=== PATIENT | female | born 1970 | race Caucasian/White ===

== ENCOUNTER 2017-01-17 21:25 | Inpatient (IN) | payer MEDICAID ==
--- NOTE | ~2017-01-17 | HP ---
Unit #: [id number] #: [id number] Patient: MARIANA MARIANO [id number] [place] [address] [id number] MR#: [id number] NAME: MARIANA MARIANO. ROOM: P209 Age: 46 Sex: F Admission Date: 01/17/2017 : 1970 Attending Physician: Edi Johnson M.D. Admitting Physician: Edi Johnson M.D. Primary Care Physician: Dylan Lee M.D. HISTORY AND PHYSICAL HISTORY OF PRESENT ILLNESS Mariana is a 46 year old admitted to [address] [place] [address] because of her abuse of alcohol. PAST MEDICAL HISTORY 1. Long history of alcohol abuse. 2. Hypothyroidism. 3. History of migraine headaches. PAST SURGICAL HISTORY 1. Gastric bypass. 2. Hysterectomy. 3. Cholecystectomy. 4. Appendectomy. 5. Cervical fusion. ALLERGIES Penicillin (hives), codeine (hives). SOCIAL HISTORY She does not smoke. Drinks at least a pint of liquor on a daily basis and denies illicit drug use. FAMILY HISTORY Medically noncontributory. REVIEW OF SYSTEMS CONSTITUTIONAL: No fever or chills. HEENT: Denies any sore throat, ear pain or runny nose. CARDIOVASCULAR: Denies chest pain, irregular heart rhythm or palpitations. CHEST: Denies shortness of breath or cough. No hemoptysis. GASTROINTESTINAL: Denies nausea, vomiting, diarrhea or chronic constipation. ENDOCRINE: Denies history of increased thirst or urination. No recent significant weight loss or gain. GENITOURINARY: Denies dysuria, frequency, or hematuria. SKIN: Denies any rashes. HEMATOLOGIC: Denies history of increased bleeding or bruising. MUSCULOSKELETAL: Denies any hot, swollen joints. No generalized muscle pain. NEUROLOGIC: Denies problems with vision or speech. No frequent, severe headaches. No numbness, tingling or weakness in any extremities. Denies loss of bladder or bowel control. Unit #: [id number] #: [id number] Patient: MARIANA MARIANO CURRENT MEDICATIONS 1. Detox protocol 2. Effexor XR 75 mg b.i.d. 3. Synthroid 0.1 mg daily 4. Lamictal 100 mg daily PHYSICAL EXAMINATION GENERAL: Alert, well-nourished, in no apparent distress. VITAL SIGNS: Blood pressure 130/100, heart rate 80, respirations 16, temperature 98.6. WEIGHT: 159 pounds. HEIGHT: 5'6". SKIN: Warm and dry without rash or lesion. HEENT: Normocephalic. TMs not viewed. Oral and nasal passages clear. Conjunctivae clear. Pupils equal, round and reactive to light and accommodation. Extraocular movements intact. NECK: Supple without lymphadenopathy or thyromegaly. HEART: Regular rate and rhythm without murmur. LUNGS: Clear. ABDOMEN: Soft, nontender. : Not done. EXTREMITIES: No evidence of cyanosis, clubbing or edema. Moves all extremities without focal deficit. NEUROLOGICAL: Grossly within normal limits. Cranial Nerves: II: Visual maldonado are intact. III, IV AND : Extraocular movements are intact. Pupils are equal, round and reactive to light. V: Facial sensation is grossly normal. VII: Facial movements and expression are normal. VIII: Auditory acuity grossly intact. IX, X: Uvula is midline. Phonation is normal. XI: Patient shrugs shoulders and turns head normally. XII: Tongue protrudes in the midline. Sensory and Motor Function: Sensory and motor sensation is grossly normal. Motor: moves all extremities well. Coordination: Gait is normal. Deep Tendon Reflexes: Intact. IMPRESSION Psychiatric admission RECOMMENDATIONS PSYCHIATRIC: Per psychiatrist. MEDICAL: I see no contraindications to participating in facility's activities. MEDICAL PROGNOSIS Good. MEDICAL CONDITION Stable. Dictated by... Cristina Rajan P.A.-C. for Donna Barrientos M.D. Unit #: [id number] #: [id number] Patient: MARIANA MARIANO WINSTON/radha TD: 01/18/2017 19:51 JOB #: [id number] HISTORY AND PHYSICAL X Cristina Rajan HISTORY AND PHYSICAL
--- NOTE | ~2017-01-17 | PN ---
Unit #: [id number] #: [id number] Patient: TANO MARIANO [id number] [facility] [address] [place] [address] [id number] MR#: [id number] NAME: TANO MARIANO. ROOM: P209 Age: 46 Sex: F Admission Date: 01/17/2017 : 1970 Attending Physician: Edi Johnson M.D. Admitting Physician: Edi Johnson M.D. Primary Care Physician: Benjamin Perez PROGRESS NOTES DATE 01/21/2017 DISCUSSION Ms. Mariano is a 46-year-old white female who was seen today and chart was reviewed and case was discussed with the staff. She has been doing fairly well and appears to be coming out of the detox without any complications. She has been taking medications and tolerating them fairly well. MENTAL STATUS EXAMINATION Middle-aged white female who was casually dressed with fair personal hygiene, appears to be in no acute distress or discomfort. She was awake and alert on interaction with intact orientation. Her mood was anxious with congruent affect. She denies any suicidal or homicidal ideations. Her insight and judgement remains slightly impaired. TREATMENT PLAN We will continue her on her current medications and treatment protocol. We will monitor her response and make further adjustments as needed. Dictated by... Benjamin Blount/radha TD: 01/23/2017 21:11 JOB #: [id number] [facility] PROGRESS NOTES X Edi Johnson MD PROGRESS NOTE
--- NOTE | ~2017-01-17 | PN ---
Unit #: [id number] #: [id number] Patient: TANO MARIANO [id number] [facility] [address] [place] [address] [id number] I MR#: [id number] NAME: TANO MARIANO. ROOM: P209 Age: 46 Sex: F Admission Date: 01/17/2017 : 1970 Attending Physician: Edi Johnson M.D. Admitting Physician: Edi Johnson M.D. Primary Care Physician: Benjamin Perez PROGRESS NOTES DATE January 19, 2017 DISCUSSION Ms. Mariano is a 46-year-old white female, with alcohol dependence and mood disorder, who was seen today and chart was reviewed and the case was discussed with the staff. The patient has been anxious, withdrawn, and rather seclusive to herself. She does seem to be tremulous and shaky with slurred speech and unsteady gait, and appears to be going through some alcohol detox symptoms. Meanwhile, she has been taking her medications and tolerating them fairly well with no reported side effects. MENTAL STATUS EXAMINATION Middle-aged white female, who was casually dressed with fair personal hygiene and appears to be in no acute distress or discomfort. She was awake and alert with impaired attention and concentration. Her mood is anxious with a congruent affect. The patient denies any suicidal or homicidal ideations, and also denies any auditory or visual hallucinations. Her insight and judgment remain slightly impaired. TREATMENT PLAN 1. We will continue her on her current medications and treatment protocol, and will monitor her response to the medications, and make further adjustments as needed. 2. We will continue to followup. Dictated by... Benjamin Bluont/yeimy TD: 01/20/2017 10:09 JOB #: [id number] Unit #: [id number] #: [id number] Patient: TANO MARIANOISACC PROGRESS NOTES X Edi Johnson MD PROGRESS NOTE
--- NOTE | ~2017-01-17 | PN ---
Unit #: [id number] #: [id number] Patient: TANO MARIANO [id number] [facility] [address] [place] [address] [id number] I MR#: [id number] NAME: TANO MARIANO. ROOM: P209 Age: 46 Sex: F Admission Date: 01/17/2017 : 1970 Attending Physician: Edi Johnson M.D. Admitting Physician: Edi Johnson M.D. Primary Care Physician: Benjamin Perez PROGRESS NOTES DATE OF SERVICE 01/20/2017 DISCUSSION Ms. Mariano is a 46-year-old white female who was seen today. Chart was reviewed and case was discussed with the staff. She has been anxious, withdrawn, shaky, and tremulous. Meanwhile, she has been cooperative with the treatment recommendations and has been taking the medications and tolerating them fairly well. MENTAL STATUS EXAMINATION Middle-aged white female who is casually dressed with fair personal hygiene, appears to be in no acute distress or discomfort. She was awake and alert on interaction with intact orientation. Her mood is anxious with a congruent affect. She denies any suicidal or homicidal ideations. Her insight and judgment remain slightly impaired. TREATMENT PLAN 1. We will continue her on her current treatment protocol. We will monitor her response to the medications and make further adjustments as needed. 2. We will continue to follow up. Dictated by... Benjamin Blount/clydeg TD: 01/21/2017 08:37 JOB #: [id number] [facility] PROGRESS NOTES X Edi Johnson MD PROGRESS NOTE
--- NOTE | ~2017-01-17 | DS ---
Unit #: [id number] #: [id number] [facility]: [facility] [id number] [facility] [place] [address] [id number] MR#: [id number] NAME: TANO MARIANO. ROOM: P209 Age: 46 Sex: F Admission Date: 01/17/2017 : 1970 Discharge Date: 01/23/2017 Attending Physician: Edi Johnson M.D. Primary Care Physician: Dylan Lee M.D. DISCHARGE SUMMARY IDENTIFYING DATA Ms. Nuñez is a 46-year-old white female who is known to us from previous encounter and was brought to the hospital accompanied by her . DISCHARGE DIAGNOSES Psychiatric: Major depressive disorder, recurrent, moderate, without psychotic features; alcohol dependence, moderate and acute withdrawals. Medical: Hypothyroidism. Stressors: Moderate psychosocial stressors. HISTORY OF PRESENT ILLNESS Please see initial psychiatric evaluation for details. PAST PSYCHIATRIC HISTORY Please see initial psychiatric evaluation for details. PAST MEDICAL HISTORY Please see initial psychiatric evaluation for details. HOSPITAL COURSE The patient was admitted to the adult psychiatric unit at [facility]te and was oriented to the hospital environment. Routine p.r.n. medications were initiated, and she was started back on her home medications and alcohol detox protocol was initiated as well. She was taking the medications regularly and was tolerating them fairly well, however, was complaining of persistent depressive symptoms and Effexor XR was increased to 75 mg b.i.d. with good tolerability and therapeutic response and complete resolution of her detox symptoms followed by which, she was willing to step down to the intensive outpatient treatment program at [facility] and was decided that she will be discharged home and will continue further ongoing outpatient treatment. DISCHARGE MEDICATIONS Effexor XR 75 mg b.i.d. for depression. DISCHARGE CONDITION Stable. PROGNOSIS Fair. Dictated by... Unit #: [id number] #: [id number] Patient: TANO MARIANO Edi Johnson M.D. IAA/modl TD: 01/23/2017 07:01 JOB #: [id number] DISCHARGE SUMMARY X Edi Johnson MD DISCHARGE SUMMARY
--- NOTE | ~2017-01-17 | PA ---
Unit #: [id number] #: [id number] Patient: TANO MARIANO [id number] [facility] [address] [place] [address] [id number] I MR#: [id number] NAME: TANO MARIANO. ROOM: P209 Age: 46 Sex: F Admission Date: 01/17/2017 : 1970 Date of Assessment: Attending Physician: Edi Johnson M.D. Admitting Physician: Edi Johnson M.D. Primary Care Physician: Dylan Lee M.D. PSYCHIATRIC ASSESSMENT DATE OF SERVICE 11/17/2017. IDENTIFYING DATA Ms. Fitzgerald is a 46-year-old white female, who is a resident of [place], [place], who is known to us from previous encounter, who was brought to the hospital accompanied by her . CHIEF COMPLAINT "I relapsed on alcohol about 2 weeks ago." HISTORY OF PRESENT ILLNESS Ms. Fitzgerald is a 46-year-old white female with dual diagnosis of mood disorder and alcohol dependence, who is known to us from previous encounter, was brought back to the hospital, accompanied by her . Upon presentation, reports that she relapsed about 2 weeks ago on alcohol and since then, she has been consuming about 2 pints of bourbon a day with last consumption today and had a blood alcohol level of 284 upon presentation and reports increasing depression, anxiety, disturbed sleep, psychomotor retardation, feelings of hopelessness and helplessness, anhedonia, and suicidal ideation. She reports that she was holding a knife to herself today, was having thoughts to cut her wrist. 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 She also reports her mother has Alzheimer's and she is grieving the loss of her profession as she has no income and she has filed for bankruptcy and that she has been isolating herself, though she states that her is a positive support system along with her sister. She was seemed to be a significant danger to self and as such, recommendation for inpatient level of care was made and the patient was transferred to us. SUBSTANCE ABUSE HISTORY The patient reports drinking alcohol since she was 16 years old. Currently, she has been drinking 2 pints of bourbon a day and denies any other drug abuse. PAST PSYCHIATRIC HISTORY The patient has had [facility] and [facility], at [facility], and has been diagnosed and treated for mood disorder. Review of the medical records indicated that she is on a combination of Effexor, Wellbutrin, and Lamictal and has not Unit #: [id number] #: [id number] Patient: TANO MARIANO been able to find any benefit out of the medication due to mixing her medication with excessive amount of alcohol. PAST MEDICAL HISTORY Hypothyroidism. ALLERGIES Codeine and penicillin. PERSONAL AND SOCIAL HISTORY A 46-year-old white female, who reports that she is and unemployed and lives at home with her and has fairly decent social support system. MENTAL STATUS EXAMINATION Middle-aged white female, who was casually dressed with fair personal hygiene, appears to be in no acute distress or discomfort. She was awake and alert on interaction with intact orientation to time, place, and person. Her mood was anxious and depressed with a congruent affect. Her speech was slow and restricted in content. Her thought processes were disorganized with some looseness of associations and flight of ideas and suicidal ideations. Her insight and judgment remain significantly impaired. DIAGNOSTIC IMPRESSION Psychiatric: Major depressive disorder, recurrent, moderate, without psychotic features; alcohol dependence, moderate and acute withdrawals. Medical: Hypothyroidism. Stressors: Moderate psychosocial stressors. TREATMENT PLAN 1. The patient has presented with a history of mood disorder and substance abuse and has been decompensating and will need inpatient hospitalization for safety and stabilization and detoxification. We will start her on detox protocol. We will monitor her response and make further adjustments as needed. 2. Supportive therapy was provided to the patient. ESTIMATED LENGTH OF STAY 5 to 7 days. ABILITY TO HELP SELF Limited. WILLINGNESS TO HELP SELF The patient appears to be willing to help self. STRENGTHS 1. Communicative. 2. Cooperative. PROBLEMS 1. Chronic dysphoric symptoms. 2. Chronic chemical dependency. 3. Poor social support system. DISCHARGE CRITERIA This will be contingent upon the patient's ability to show resolution of Unit #: [id number] #: [id number] Patient: TANO MARIANO her depression and anxiety and her ability to stay safe to herself, particularly after discharge from the hospital. Dictated by... Benjamin Blount/johnson TD: 01/18/2017 07:12 JOB #: [id number] PSYCHIATRIC ASSESSMENT X Edi Johnson MD X PSYCHIATRIC ASSESSMENT
[2017-01-18 09:23] LABS: BASOPHIL# 0.1 X10e3 (0-0.3); BASOPHIL% 1.2 % (0-2.5); EOSINOPHIL# 0.2 X10e3 (0-0.7); EOSINOPHIL% 1.8 % (0.0-7.0); HEMATOCRIT 40.9 % (35.0-45.0); HEMOGLOBIN 13.5 gm/dL (12.0-16.0); LYMPHOCYTE% 20.3 % (17.0-45.0); MEAN CELL VOLUME 96.6 FL (83-96); MEAN CORPUSCULAR HGB CONC 33.1 g/dL (30-36); MEAN PLATELET VOLUME 8.4 FL (6.5-11.5); MONOCYTE# 0.7 X10e3 (0-1.0); MONOCYTE% 7.4 % (3.0-12.0); NEUTROPHIL% 69.3 % (40-75); PLATELET COUNT 333 X10e3 (140-420); RED BLOOD COUNT 4.23 X10e (3.90-5.30); RED CELL DISTRIBUTION WIDTH 13.5 % (11.0-15.5); WHITE BLOOD COUNT 10.1 X10e3 (4.0-10.5)
[2017-01-18 09:28] LABS: DIFF IND NO
[2017-01-18 09:45] LABS: THYROID STIMULATING HORMONE 7.16 uIU/ml (0.34-5.60)
[2017-01-18 09:49] LABS: ALBUMIN SERUM 4.4 g/dL (3.5-5.0); ALKALINE PHOSPHATASE 82 U/L (32-92); ALT (SGPT) 18 U/L (10-40); AST (SGOT) 32 U/L (10-42); BILIRUBIN,TOTAL 1.6 mg/dL (0.2-2.0); BLOOD UREA NITROGEN 8 mg/dL (9-23); CALCIUM SERUM 9.6 mg/dL (8.4-10.2); CARBON DIOXIDE 26 mmol/L (22-31); CHLORIDE 97 mmol/L (100-111); GLOM FILT RATE Estimated ABOVE60 mL/min (>60); GLUCOSE FASTING 198 mg/dL (70-110); POTASSIUM 4.4 mmol/L (3.5-5.1); SODIUM 137 mmol/L (135-145)
[2017-01-18 09:54] LABS: FREE THYROXIN (T4) 0.8 ng/dL (0.58-1.64)
[2017-01-21 12:15] LABS: URINE APPEARANCE CLEAR; URINE BILIRUBIN NEG (NEG); URINE BLOOD NEG (NEG); URINE COLOR YELLOW; URINE GLUCOSE NEG (NEG); URINE KETONE NEG (NEG); URINE LEUKOCYTE ESTERASE NEG (NEG); URINE NITRATE NEG (NEG); URINE PH 6.5 (5-8); URINE PROTEIN NEG (NEG); URINE SPECIFIC GRAVITY 1.017 (1.003-1.035); URINE UROBILINOGEN 0.2 MG/DL (NEG)
[2017-01-21 13:15] LABS: AMPHETAMINE NEG (NEG); BARBITURATES NEG (NEG); BENZODIAZEPINES POS (NEG); COCAINE NEG (NEG); MARIJUANA NEG (NEG); OPIATES NEG (NEG); TRICYCLIC ANTIDEPRESSANTS NEG (NEG); U METHADONE NEG (NEG)
== END 2017-01-23 11:51 | disposition hospice, home (50) | DRG 885 ==
LOC: P2S 21:25
PROVIDERS: Psychiatry & Neurology Psychiatry
PROC: HZ2ZZZZ Detoxification Services for Substance Abuse Treatment (ICD-10-PCS; principal; 2017-01-17)
DX: F33.1 Major depressive disorder, recurrent, moderate (principal); F10.239 Alcohol dependence with withdrawal, unspecified; E03.9 Hypothyroidism, unspecified; F41.9 Anxiety disorder, unspecified; Z88.5 Allergy status to narcotic agent; Z88.0 Allergy status to penicillin; Z56.0 Unemployment, unspecified; Z98.84 Bariatric surgery status
CPT/HCPCS: 80053; 80307; 81003; 84439; 84443; 85025; 86592

== ENCOUNTER 2017-03-17 05:50 | Inpatient (IN) | payer MEDICAID ==
--- NOTE | ~2017-03-17 | PN ---
Unit #: [id number] #: [id number] Patient: TANO MARIANO [id number] [facility] [address] [place] [address] [id number] MR#: [id number] NAME: TANO MARIANO. ROOM: P203 Age: 46 Sex: F Admission Date: 03/17/2017 : 1970 Attending Physician: Edi Johnson M.D. Admitting Physician: Edi Johnson M.D. Primary Care Physician: Benjamin Perez PROGRESS NOTES DATE OF SERVICE 03/22/2017 DISCUSSION Ms. Mariano is a 46-year-old white female who was seen today. Chart was reviewed and case was discussed with the staff. She has been anxious, withdrawn, and rather seclusive to himself and has been exhibiting some persistent anxiety and depressive symptom. Meanwhile, she has been taking the medications and tolerating them fairly well with no reported side effects. MENTAL STATUS EXAMINATION Middle-aged white female who is casually dressed with fair personal hygiene, appears to be in no acute distress or discomfort. She was awake and alert with impaired attention and concentration. Her mood is anxious with congruent affect. She denies any suicidal or homicidal ideations. Her insight and judgment remain slightly impaired. TREATMENT PLAN 1. We will continue her on her current medications and treatment protocol. We will monitor her response to the medications and make further adjustments as needed. 2. We will continue to follow up. Dictated by... Benjamin Blount/fran TD: 03/22/2017 11:20 JOB #: [id number] Unit #: [id number] #: [id number] Patient: TANO MARIANO PEAISACC PROGRESS NOTES Page 1 of 1 X Edi Johnson MD PROGRESS NOTE
--- NOTE | ~2017-03-17 | PN ---
Unit #: [id number] #: [id number] Patient: TANO MARIANO [id number] [facility] [address] [place] [address] [id number] I MR#: [id number] NAME: TANO MARIANO. ROOM: P203 Age: 46 Sex: F Admission Date: 03/17/2017 : 1970 Attending Physician: Edi Johnson M.D. Admitting Physician: Edi Johnson M.D. Primary Care Physician: Benjamin Perez NOTES DATE OF SERVICE: 03/20/2017 SUBJECTIVE Ms. Mariano is a 46-year-old white female who was seen today and chart was reviewed, and case was discussed with the staff, who reports the patient has been decompensating as she is in the midst of her acute delirium tremens and has been and has been transferred to different room, and has been kept into the locked camera room. Meanwhile, she has not been able to carry on any meaningful conversation medicated to keep her safe and acute psychosis and paranoia under control and as such, we will continue to monitor her response to treatment interventions and make further adjustments in treatment plan as needed. Dictated by... Benjamin Blount/sandrol TD: 03/20/2017 21:12 JOB #: [id number] [facility] ROONEY NOTES Page 1 of 1 X Edi Johnson MD X PROGRESS NOTE
--- NOTE | ~2017-03-17 | PA ---
Unit #: [id number] #: [id number] Patient: TANO MARIANO [id number] [facility] [address] [place] [address] [id number] I MR#: [id number] NAME: TANO MARIANO. ROOM: P180 Age: 46 Sex: F Admission Date: 03/17/2017 : 1970 Date of Assessment: 03/17/2017 Attending Physician: Edi Johnson M.D. Admitting Physician: Edi Johnson M.D. Primary Care Physician: Dylan Lee M.D. PSYCHIATRIC ASSESSMENT DATE OF SERVICE 03/17/2017. IDENTIFYING DATA Ms. Mariano is a 46-year-old white female, who is a resident of [place], [place], and is known to us from previous encounter, was transferred to us from the emergency room on a mental inquest warrant. CHIEF COMPLAINT "I've been drinking." HISTORY OF PRESENT ILLNESS A 46-year-old white female, who was brought to the hospital on a mental inquest warrant and taken out by her nephew which stated the patient has been diagnosed with bipolar disorder and has been having severe depression and has not been taking her medications prescribed for last week and has been abusing alcohol and has history of suicide attempt. The patient has stated that she wants to kill herself and was drinking and driving. MIW also stated that the patient has been verbally and physically threatening and petitioner concerned for safety of the patient and others. Upon presentation to the hospital, her blood alcohol level was 0.301 and she was kept in the waiting for 12 hours before assessment could be initiated and the patient was still seen to be shaking and she stated "I do this and I get nauseous." She was seen to be cooperative and was having some increasing anxiety and has history of alcohol dependence, has history of delirium tremens and she reports that she has been drinking close to 2 pints of bourbon a day and that she recently has been taking someone has medications at home that she used to take to reduce the risk of withdrawals and she endorses passive suicidal ideation stating "I don't actively want to do anything." She reports that they are family issues and her mother is terminally ill and father is not coping well with it and sister and the patient responsive of taking care of mother. The patient endorses stressors with not working and upcoming marriage as finance and health problems and does report increasing depression with feelings of hopelessness and helplessness, and as such, recommendation for inpatient level of care for safety and stabilization was made. The patient was medically cleared and then transferred to us. SUBSTANCE ABUSE HISTORY The patient reports a long history of alcohol dependence as she stated that she has been drinking since she was 16 years old and currently has been drinking 2 pints of bourbon a day and denies any other drug abuse. Unit #: [id number] #: [id number] Patient: TANO MARIANO PAST PSYCHIATRIC HISTORY The patient has had history of multiple inpatient psychiatric hospitalizations at [facility], at [facility] and other facilities and has been diagnosed and treated for bipolar disorder and has been noncompliant with medications including her Seroquel, Wellbutrin, and Lamictal and as such, has been decompensating. PAST MEDICAL HISTORY The patient's medical history is significant for migraine headaches, hypertension, history of retinal surgery. ALLERGIES Penicillin and codeine. PERSONAL AND SOCIAL HISTORY A 46-year-old white female, who reports that she is and and lives by herself, and is responsible for taking care of her parents. MENTAL STATUS EXAMINATION Middle-aged white female who was casually dressed with fair personal hygiene, appears to be in no acute distress or discomfort. She was awake and alert on interaction with intact orientation to time, place, and person. Her mood was anxious and depressed with a congruent affect. Her speech was slow and restricted in content. Her thought processes were disorganized with some looseness of associations and paranoid ideations. She also reports having suicidal ideations. Her insight and judgment remain significantly impaired. DIAGNOSTIC IMPRESSION Psychiatric: Bipolar disorder, most recent episode depressed, recurrent, moderate, without psychotic features; alcohol dependence, moderate and acute withdrawals. Medical: Hypertension, migraine headaches, history of retinal surgery. Stressors: Moderate psychosocial stressors. TREATMENT PLAN 1. The patient has presented with history of mood disorder and substance abuse and has been decompensating and will need inpatient hospitalization for safety and stabilization. We will start her back on her home medications. We will adjust the medications and monitor response. 2. Supportive therapy was provided to the patient. 3. Safe, structured, and nourishing environment will be provided. ESTIMATED LENGTH OF STAY 5 to 7 days. ABILITY TO HELP SELF Limited. WILLINGNESS TO HELP SELF The patient appears to be willing to help self. STRENGTHS 1. Communicative. 2. Cooperative. PROBLEMS 1. Chronic dysphoric symptoms. 2. Chronic chemical dependency. Unit #: [id number] #: [id number] Patient: TANO MARIANO 3. Poor social support system. DISCHARGE CRITERIA This will be continued the patient's ability to go through detox without having any significant withdrawal symptoms and her ability to stay safe to herself, particularly after discharge from the hospital. Dictated by... Edi Johnson M.D. CAROL/johnson TD: 03/18/2017 23:12 JOB #: [id number] PSYCHIATRIC ASSESSMENT Page 1 of 1 X Edi Johnson MD PSYCHIATRIC ASSESSMENT
--- NOTE | ~2017-03-17 | PN ---
Unit #: [id number] #: [id number] Patient: TANO MARIANO [id number] [facility] [address] [place] [address] [id number] MR#: [id number] NAME: TANO MARIANO. ROOM: P203 Age: 46 Sex: F Admission Date: 03/17/2017 : 1970 Attending Physician: Edi Johnson M.D. Admitting Physician: Edi Johnson M.D. Primary Care Physician: Benjamin Perez PROGRESS NOTES DATE 03/18/2017 DISCUSSION Ms. Mariano is a 46-year-old white female who was seen today and chart was reviewed and case was discussed with the staff. She has been anxious, withdrawn and rather seclusive to herself and has been in distress and discomfort as she is going through detox and staff put her on camera monitor in the room due to patient being unsteady on her feet and having the risk of fall. Meanwhile, she has been cooperative with treatment recommendations as she has been taking the medications and tolerating them fairly well. MENTAL STATUS EXAMINATION Middle-aged white female who was casually dressed with fair personal hygiene, appears to be in slight distress or discomfort. She was awake and alert with impaired attention and concentration. Her mood was anxious with congruent affect. Her speech was slow and restricted in content. Her thought processes were disorganized with some looseness of associations and flight of ideas. Her insight and judgement remains significantly impaired. TREATMENT PLAN 1. We will continue her on her current medications and treatment protocol. We will monitor her response to the medications and make further adjustments as needed. 2. We will continue to follow up. Dictated by... Benjamin Blount/radha TD: 03/20/2017 00:21 JOB #: [id number] Unit #: [id number] #: [id number] Patient: TANO MARIANO PROGRESS NOTES Page 1 of 1 X Edi Johnson MD X PROGRESS NOTE
--- NOTE | ~2017-03-17 | PN ---
Unit #: [id number] #: [id number] Patient: TANO MARIANO [id number] [facility] [address] [place] [address] [id number] MR#: [id number] NAME: TANO MARIANO. ROOM: P203 Age: 46 Sex: F Admission Date: 03/17/2017 : 1970 Attending Physician: Edi Johnson M.D. Admitting Physician: Edi Johnson M.D. Primary Care Physician: Benjamin Perez PROGRESS NOTES DATE 03/23/2017 DISCUSSION Ms. Mariano is a 46-year-old white female who was seen today and chart was reviewed and case was discussed with the staff. She has been anxious, withdrawn and rather seclusive to herself. Meanwhile, she has been cooperative with treatment recommendations and has been taking medications and tolerating them fairly well. MENTAL STATUS EXAMINATION Middle-aged white female who was casually dressed with fair personal hygiene and appears to be in no acute distress or discomfort. She was awake and alert on interaction with intact orientation. Her mood was anxious with congruent affect. She denies any suicidal or homicidal ideations. Her insight and judgement remains slightly impaired. TREATMENT PLAN 1. Will continue on current medications and treatment protocol. Will monitor her response to the medications and make further adjustments as needed. 2. Will continue to follow up. Dictated by... Benjamin Blount/radha TD: 03/23/2017 18:24 JOB #: [id number] Unit #: [id number] #: [id number] Patient: TANO MARIANO PROGRESS NOTES Page 1 of 1 X Edi Johnson MD X PROGRESS NOTE
--- NOTE | ~2017-03-17 | TN ---
Unit #: [id number] #: [id number] Patient: TANO MARIANO [id number] [facility] [address] [place] [address] [id number] I MR#: [id number] NAME: TANO MARIANO. ROOM: P203 Age: 46 Sex: F Admission Date: 03/17/2017 : 1970 Discharge Date: 03/23/2017 Attending Physician: Edi Johnson M.D. Primary Care Physician: Dylan Lee M.D. LOC TRANSFER NOTE DATE OF SERVICE: 03/27/2017 DATE OF SERVICE 03/27/2017. HISTORY OF PRESENT ILLNESS Ms. Mariano is a 46-year-old white female, who was stepped down to the outpatient treatment program from the adult inpatient psychiatric unit, where she was brought in on a mental inquest warrant and was hospitalized under my care and did go to the [facility] court and was able to sign an agreed order; followed by which, she was stepped down to the outpatient treatment program. She reports that she is struggling with cravings for alcohol, though she stated that she has been taking Antabuse and Campral at the same time to fight the craving and to stay sober as she was told that she had her first episode of delirium tremens while on the unit and that she does not appear to be metabolizing alcohol very well and it is in her best interest to stay sober, but she stated that when she tried Vivitrol, she took a pill and she was so depressed that she wanted to kill herself and therefore does not want to go back to that trial. Meanwhile, she has been taking her regular psychotropic medications and has been feeling fairly well. SUBSTANCE ABUSE HISTORY The patient has a long history of alcohol dependence, but denies any other drug abuse. PAST PSYCHIATRIC HISTORY The patient has had a history of multiple inpatient psychiatric hospitalizations and has been diagnosed and treated for alcohol dependence and mood disorder and is currently on a combination of psychotropic regimen including Seroquel, Effexor, Wellbutrin, and Lamictal. PAST MEDICAL HISTORY Hypothyroidism. ALLERGIES Penicillin and codeine. PERSONAL AND SOCIAL HISTORY A 46-year-old white female, who reports that she is and lives at home with her family and has fairly decent social support system. MENTAL STATUS EXAMINATION Unit #: [id number] #: [id number] Patient: TANO MARIANO Middle-aged white female, who was casually dressed with fair personal hygiene, appears to be in no acute distress or discomfort. She was awake and alert on interaction with intact orientation. Her mood was anxious with a congruent affect. Her speech was slow and restricted in content. She reports having suicidal ideations, but denies any homicidal ideations. Her insight and judgment remain significantly impaired. DIAGNOSTIC IMPRESSION Psychiatric: Major depressive disorder, recurrent, moderate, without psychotic features and alcohol dependence, moderate. Medical: Hypothyroidism. Stressors: Moderate psychosocial stressors. TREATMENT PLAN 1. The patient has presented with a history of mood disorder and substance abuse. We will recommend enrolling her into the outpatient treatment program and maintaining her on her current medications and we will monitor her response and make further adjustments as needed. 2. Supportive therapy was provided to the patient. ESTIMATED LENGTH OF STAY 14 to 21 days. ABILITY TO HELP SELF Limited. WILLINGNESS TO HELP SELF The patient appears to be willing to help self. STRENGTHS 1. Communicative. 2. Cooperative. PROBLEMS 1. Chronic dysphoric symptoms. 2. Poor social support system. DISCHARGE CRITERIA This will be contingent upon the patient's ability to show resolution of her depression and anxiety and her ability to stay safe to herself particularly after discharge from the program. Dictated by... Benjamin Blount/johnson TD: 03/27/2017 11:03 JOB #: [id number] Unit #: [id number] #: [id number] Patient: TANO MARIANO LOC TRANSFER NOTE Page 1 of 1 X Edi Johnson MD X LOC TRANSFER NOTE
--- NOTE | ~2017-03-17 | HP ---
Unit #: [id number] #: [id number] Patient: MARIANA MARIANO [id number] [place] [address] [id number] MR#: [id number] NAME: MARIANA MARIANO. ROOM: P181 Age: 46 Sex: F Admission Date: 03/17/2017 : 1970 Attending Physician: Edi Johnson M.D. Admitting Physician: Edi Johnson M.D. Primary Care Physician: Dylan Lee M.D. HISTORY AND PHYSICAL HISTORY OF PRESENT ILLNESS Mariana is a 46 year old admitted to [facility] because of her continued abuse of alcohol. PAST MEDICAL HISTORY 1. Long history of alcohol abuse. 2. Hypothyroidism. 3. History of migraine headaches. PAST SURGICAL HISTORY 1. Gastric bypass. 2. Hysterectomy. 3. Cholecystectomy. 4. Appendectomy. 5. Cervical fusion. ALLERGIES Penicillin (hives), codeine (hives). SOCIAL HISTORY She does not smoke. Drinks at least a pint of liquor on a daily basis and denies illicit drug use. FAMILY HISTORY Medically noncontributory. REVIEW OF SYSTEMS CONSTITUTIONAL: No fever or chills. HEENT: Denies any sore throat, ear pain or runny nose. CARDIOVASCULAR: Denies chest pain, irregular heart rhythm or palpitations. CHEST: Denies shortness of breath or cough. No hemoptysis. GASTROINTESTINAL: Denies nausea, vomiting, diarrhea or chronic constipation. ENDOCRINE: Denies history of increased thirst or urination. No recent significant weight loss or gain. GENITOURINARY: Denies dysuria, frequency, or hematuria. SKIN: Denies any rashes. HEMATOLOGIC: Denies history of increased bleeding or bruising. MUSCULOSKELETAL: Denies any hot, swollen joints. No generalized muscle pain. NEUROLOGIC: Denies problems with vision or speech. No frequent, severe headaches. No numbness, tingling or weakness in any extremities. Denies loss of bladder or bowel control. Unit #: [id number] #: [id number] Patient: MARIANA MARIANO CURRENT MEDICATIONS 1. Detox protocol. 2. Synthroid 0.1 mg daily. PHYSICAL EXAMINATION GENERAL: Alert, well-nourished, in no apparent distress. VITAL SIGNS: Blood pressure 162/100, heart rate 80, respirations 16, temperature 98.6. WEIGHT: 158. HEIGHT: 5 feet 6 inches. SKIN: Warm and dry without rash or lesion. HEENT: Normocephalic. TMs not viewed. Oral and nasal passages clear. Conjunctivae clear. PERRLA. EOMs intact. NECK: Supple without lymphadenopathy or thyromegaly. HEART: Regular rate and rhythm without murmur. LUNGS: Clear. ABDOMEN: Soft, nontender. : Not done. EXTREMITIES: No evidence of cyanosis, clubbing or edema. Moves all without focal deficit. NEUROLOGICAL: Grossly within normal limits. Cranial Nerves: II: Visual maldonado are intact. III, IV AND : Extraocular movements are intact. Pupils are equal, round and reactive to light. V: Facial sensation is grossly normal. VII: Facial movements and expression are normal. VIII: Auditory acuity grossly intact. IX, X: Uvula is midline. Phonation is normal. XI: Patient shrugs shoulders and turns head normally. XII: Tongue protrudes in the midline. Sensory and Motor Function: Sensory and motor sensation is grossly normal. Motor: moves all extremities well. Coordination: Gait is normal. Deep Tendon Reflexes: Intact. IMPRESSION Psychiatric admission. RECOMMENDATIONS PSYCHIATRIC: Per psychiatrist. MEDICAL: See no contraindications to participate in facility's activities. MEDICAL PROGNOSIS Good. MEDICAL CONDITION Stable. Dictated by... Cristina Rajan P.A.-C. for Benjamin Pablo/radha TD: 03/17/2017 22:02 JOB #: [id number] Unit #: [id number] #: [id number] Patient: MARIANA MARIANO HISTORY AND PHYSICAL Page 1 of 1 X Cristina Rajan HISTORY AND PHYSICAL
--- NOTE | ~2017-03-17 | PN ---
Unit #: [id number] #: [id number] Patient: TANO MARIANO [id number] [facility] [address] [place] [address] [id number] MR#: [id number] NAME: TANO MARIANO. ROOM: P203 Age: 46 Sex: F Admission Date: 03/17/2017 : 1970 Attending Physician: Edi Johnson M.D. Admitting Physician: Edi Johnson M.D. Primary Care Physician: Benjamin Perez PROGRESS NOTES DATE 03/19/2017 DISCUSSION Ms. Mariano is a 46-year-old white female with alcohol dependence and mood disorder who was seen today and chart was reviewed and case was discussed with the staff. She remains anxious, withdrawn and rather seclusive to herself. Meanwhile, she has been cooperative with treatment recommendations as she has been taking the medications and tolerating them fairly well with no reported side effects. MENTAL STATUS EXAMINATION Middle-aged white female who was casually dressed with fair personal hygiene, appears to be in no acute distress or discomfort. She was awake and alert on interaction with intact orientation. Her mood was anxious with congruent affect. She denies any suicidal or homicidal ideations. Her insight and judgement remains slightly impaired. TREATMENT PLAN 1. We will continue her on her current medications and treatment protocol. We will monitor her response to the medication and make further adjustments as needed. 2. We will continue to follow up. Dictated by... Benjamin Blount/radha TD: 03/20/2017 04:31 JOB #: [id number] Unit #: [id number] #: [id number] Patient: TANO MARIANO [facility] PROGRESS NOTES Page 1 of 1 X Edi Johnson MD X PROGRESS NOTE
--- NOTE | ~2017-03-17 | PN ---
Unit #: [id number] #: [id number] Patient: TANO MARIANO [id number] [facility] [address] [place] [address] [id number] MR#: [id number] NAME: TANO MARIANO. ROOM: P203 Age: 46 Sex: F Admission Date: 03/17/2017 : 1970 Attending Physician: Edi Johnson M.D. Admitting Physician: Edi Johnson M.D. Primary Care Physician: Benjamin Perez PROGRESS NOTES DATE 03/21/2017 DISCUSSION Ms. Mariano is a 46-year-old white female who was seen today and chart was reviewed and case was discussed with the staff. She has been anxious, withdrawn though has not shown any agitation, irritability or behavioral problems and has been cooperative with treatment recommendations and has been taking medications and tolerating them fairly well. MENTAL STATUS EXAMINATION Young white female who was casually dressed with fair personal hygiene and appears to be in no acute distress or discomfort. She was awake and alert on interaction with intact orientation. Her mood was anxious with congruent affect. She denies any suicidal or homicidal ideations. Her insight and judgement remains slightly impaired. TREATMENT PLAN 1. Will continue on his current medications and treatment protocol. Will monitor her response to the medications and make further adjustments as needed. 2. Will continue to follow up. Dictated by... Edi Johnson M.D. IAA/radha TD: 03/21/2017 20:55 JOB #: [id number] Unit #: [id number] #: [id number] Patient: TANO MARIANO PROGRESS NOTES Page 1 of 1 X Edi Johnson MD X PROGRESS NOTE
[2017-03-18 14:44] LABS: AMPHETAMINE NEG (NEG); BARBITURATES NEG (NEG); BENZODIAZEPINES POS (NEG); COCAINE NEG (NEG); MARIJUANA NEG (NEG); OPIATES NEG (NEG); TRICYCLIC ANTIDEPRESSANTS POS (NEG); U METHADONE NEG (NEG)
[2017-03-18 14:58] LABS: URINE APPEARANCE CLEAR; URINE BILIRUBIN NEG (NEG); URINE BLOOD NEG (NEG); URINE COLOR DK YELLOW; URINE GLUCOSE NEG (NEG); URINE KETONE NEG (NEG); URINE LEUKOCYTE ESTERASE NEG (NEG); URINE NITRATE NEG (NEG); URINE PROTEIN NEG (NEG); URINE SPECIFIC GRAVITY 1.003 (1.003-1.035); URINE UROBILINOGEN 0.2 MG/DL (NEG)
== END 2017-03-23 12:58 | DRG 885 ==
LOC: P1E 05:50 → P2S 03-19 21:14
PROVIDERS: Psychiatry & Neurology Psychiatry
PROC: HZ2ZZZZ Detoxification Services for Substance Abuse Treatment (ICD-10-PCS; principal; 2017-03-17)
DX: F31.32 Bipolar disorder, current episode depressed, moderate (principal); I10 Essential (primary) hypertension; F10.239 Alcohol dependence with withdrawal, unspecified; G43.909 Migraine, unspecified, not intractable, without status migrainosus; F29 Unspecified psychosis not due to a substance or known physiological condition
CPT/HCPCS: 80307; 81003